=== PATIENT | female | born 1985 | race African-American/Black ===

== ENCOUNTER 2016-08-09 14:33 | Emergency (ER) | payer OTHER ==
[~2016-08-09 14:33] MED LIST: ALBU17IN INH; COLA100C PO; EXCETAB80 PO; FERR325T3 PO; IBUP80TA PO; PERC5TAB6 PO
[2016-08-09 15:56] LABS: BASO % 0.2 % (0.0-1.0); EOS # 0.2 K/mm3 (0.0-0.50); EOS % 2.7 % (0.0-3.0); LARGE UNSTAINED CELL # 0.1 K/mm3 (0.0-0.4); LARGE UNSTAINED CELL % 1.5 % (0.0-4.0); LYMPH # 1.5 K/mm3 (1.5-4.5); LYMPH % 21.3 % (24.0-44.0); MEAN CORPUSCULAR HEMOGLOBIN 28.8 pg (27.0-33.0); MEAN CORPUSCULAR HGB CONC 33.4 g/dl (32.0-36.5); MEAN CORPUSCULAR VOLUME 86.4 fl (80.0-96.0); MONO # 0.4 K/mm3 (0.0-0.8); MONO % 6.1 % (0.0-5.0); NEUTROPHILS # 4.9 K/mm3 (1.8-7.7); NEUTROPHILS % 68.2 % (36.0-66.0); PLATELET COUNT, AUTOMATED 289 k/mm3 (150-450); RED CELL DISTRIBUTION WIDTH 12.3 % (11.5-14.5); WHITE BLOOD COUNT 7.1 K/mm3 (4.0-10.0)
[2016-08-09 16:06] LABS: ALBUMIN 4.1 GM/DL (3.2-5.2); ALBUMIN/GLOBULIN RATIO 1.08 (1.00-1.93); ALKALINE PHOSPHATASE 76 U/L (45-117); ALT/SGPT 22 U/L (12-78); AMYLASE 42 U/L (25-115); ANION GAP 6 MEQ/L (8-16); AST/SGOT 11 U/L (15-37); BILIRUBIN,DIRECT < 0.1 MG/DL (0.0-0.2); BILIRUBIN,TOTAL 0.3 MG/DL (0.2-1.0); BLOOD UREA NITROGEN 7 MG/DL (7-18); CALCIUM LEVEL 9.2 MG/DL (8.5-10.1); CARBON DIOXIDE LEVEL 28 MEQ/L (21-32); CHLORIDE LEVEL 107 MEQ/L (98-107); CREATININE FOR GFR 0.76 MG/DL (0.55-1.02); GLOMERULAR FILTRATION RATE > 60.0 (>60); GLUCOSE, FASTING 105 MG/DL (70-105); POTASSIUM SERUM 3.5 MEQ/L (3.5-5.1); SODIUM LEVEL 141 MEQ/L (136-145); TOTAL PROTEIN 7.9 GM/DL (6.4-8.2)
[2016-08-09] MEDS ORDERED: ONDANSETRON 4 MG ORAL DISINTEGRATING TAB (S0181) As Ordered ONE (16:21)
[2016-08-09] MEDS ORDERED: ACETAMINOPHEN 325 MG TAB As Ordered ONE (16:22)
--- NOTE | 2016-08-09 17:00 | REP ---
Right upper quadrant sonography: History: Right upper quadrant pain. Comparison study: Comparison CT study March 12, 2016. Findings: Scanning through the right upper quadrant of the abdomen demonstrates a normal sized, thin-walled gallbladder without evidence of stone or polyp. Common bile duct is normal measuring 0.4 cm in greatest diameter. No focal liver lesion is seen. There is evidence of mild fatty infiltration diffusely in the liver. Liver size is normal. No pancreatic abnormality is observed. The pancreas is partially obscured by abdominal gas. No right renal abnormality is seen. There is no evidence of ascites. The right kidney measures 11.3 x 7.1 x 5.8 cm. Impression: Mild fatty infiltration in the liver suspected. Otherwise negative right upper quadrant sonography. Signed by Gage Huerta MD 08/09/2016 04:52 P
--- NOTE | 2016-08-09 17:18 | EDDOCDS ---
Physician Documentation [facility] Name: Cat More Age: 31 yrs Sex: Female : 1985 Arrival Date: 08/09/2016 Time: 14:33 Bed PR Private MD: MAYNOR Le Disposition: 08/09/16 17:09 Discharged to Home/Self Care. Impression: Right upper quadrant abdominal tenderness, Vomiting, Diarrhea, unspecified. - Condition is Stable. - Discharge Instructions: Abdominal Pain, Adult, Food Choices to Help Relieve Diarrhea, Adult, Nausea and Vomiting. - Prescriptions for Prilosec 20 mg Oral Capsule, Delayed Release(E.C.) - take 1 capsule by ORAL route once daily; 28 capsule. ZOFRAN ODT 4 mg - dissolve 1 tablet by ORAL route 4 times per day As needed do not chew, do not swallow whole; 10 tablet. - Medication Reconciliation, Local Pharmacy Hours form. - Follow up: MAYNOR Le; When: Call to arrange an appointment; Reason: Recheck today's complaints, Continuance of care. Follow up: Luis Alberto Law; When: Call to arrange an appointment; Reason: Recheck today's complaints, Continuance of care. - Problem is an acute exacerbation. - Symptoms are unchanged. Historical: - Allergies: Stadol (Hives); - Home Meds: 1. none - PMHx: Asthma; Migraine Headaches; PCOS; PID; - PSHx: Hysterectomy; - Social history: Smoking status: Patient uses tobacco products, current every day smoker. No barriers to communication noted, The patient speaks fluent Mauritian, Speaks appropriately for age. - Family history: Not pertinent. - : The pt / caregiver states he / she is not on anticoagulants. Home medication list is obtained from the patient. - Exposure Risk Screening:: None identified. 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 5 in. (165.10 cm); Pain 10/10; 17:11 BP 135 / 83; Pulse 81; Resp 18; Temp 98.7(TE); Pulse Ox 97% on R/A; Pain 7/10; mdr 14:35 Body Mass Index 40.27 (109.77 kg, 165.10 cm) cmb MDM: 14:55 UCG by Nursing ordered. dt4 15:04 NOTHING BY MOUTH+DIET ordered. EDMS 15:05 Amylase Ordered. EDMS 15:05 Basic Metabolic Profile Ordered. EDMS 15:05 CBC with Diff Ordered. EDMS 15:05 Lipase Ordered. EDMS 15:05 Liver Profile Ordered. EDMS 16:12 Liver Profile Reviewed. mo1 16:12 Amylase Reviewed. mo1 16:12 CBC with Diff Reviewed. mo1 16:13 Basic Metabolic Profile Reviewed. mo1 16:13 Lipase Reviewed. mo1 16:18 Ondansetron ODT Oral Disintegrating Tablet 4 mg PO once ordered. mo1 16:18 Acetaminophen Tablet 975 mg PO once ordered. mo1 16:19 US Gallbladder Ordered. EDMS 16:53 Financial registration complete. Point of Care Testing: Urine : 15:28 hCG Reading: Negative; Control Reading: Positive; mdr Ranges: Administered Medications: 16:25 Drug: Ondansetron ODT 4 mg [ondansetron 4 mg disintegrating tablet (1 tabs)] Route: PO; mcp 16:25 Drug: Acetaminophen 975 mg [acetaminophen 325 mg tablet (3 tabs)] Route: PO; [facility] Signatures: Dispatcher [employer] Franci Kennedy MD MD sd1 Latanya Sarkar RN RN mcp Barnhardt, Gloria, Jett Love PA PA mo1 Lamar Ovalle RN RN ead Tschudi, Diane, PA-C PA-C dt4 The chart was reviewed and I authenticate all verbal orders and agree with the evaluation and treatment provided.Corrections: (The following items were deleted from the chart) 16:55 15:03 Undress patient appropriately for examination ordered. sd1 mo1 [facility]
--- NOTE | 2016-08-09 17:18 | EDDOCDS ---
Nurse's Notes [facility] Name: Cat More Age: 31 yrs Sex: Female : 1985 Arrival Date: 08/09/2016 Time: 14:33 Bed PR Private MD: MAYNOR Le Diagnosis: Right upper quadrant abdominal tenderness;Vomiting;Diarrhea, unspecified Presentation: 08/09 14:36 Presenting complaint: Patient states: pt c/o abdominal pain, onset 2 weeks ago. States ead she was seen at [place] on Monday and diagnosed with stomach virus. Pt reports she continues to have n/v/d. Risk factors: the patient reports no vaginal bleeding. Adult Sepsis Screening: The patient does not have new or worsening altered mentation. Patient's respiratory rate is less than 22. Systolic blood pressure is greater than 100. Patient has a qSOFA score of 0- Negative Sepsis Screen. Suicide/Homicide risk assessment- the patient denies having any suicidal and/or homicidal ideations and does not present with any other emotional, behavioral or mental health complaints. Status: The patient is a dependent. Transition of care: patient was not received from another setting of care. 14:36 Acuity: TIERRA Level 3 ead 14:36 Method Of Arrival: Walkin/Carried/Asstd ead Triage Assessment: 14:38 General: Appears in no apparent distress, Behavior is appropriate for age, cooperative. ead Pain: Location: right upper quadrant and right lower quadrant Pain currently is 8 out of 10 on a pain scale. HIV screening NA for this visit Offered previously. Respiratory: Airway is patent Respiratory effort is even, unlabored. GI: Reports diarrhea, lower abdominal pain, upper abd pain, nausea, vomiting. : Denies burning with urination, pain vaginal bleeding. 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 none - PMHx: Asthma; Migraine Headaches; PCOS; PID; - PSHx: Hysterectomy; - Social history: Smoking status: Patient uses tobacco products, current every day smoker. No barriers to communication noted, The patient speaks fluent Ukrainian, Speaks appropriately for age. - Family history: Not pertinent. - : The pt / caregiver states he / she is not on anticoagulants. Home medication list is obtained from the patient. - Exposure Risk Screening:: None identified. Screenin:39 Screening information is obtained from the patient. Fall risk: No risks identified. ead Assistance ADL's: requires no assistance with activities of daily living. Abuse/DV Screen: The patient / caregiver reports he/she is: not in a situation that causes fear, pain or injury. Nutritional screening: No deficits noted. Advance Directives: Currently, there is a health care proxy, Sean More (). There is no active DNR order. There is no living will. home support is adequate. 14:40 Advance Directives: information regarding advance directives can be obtained from Sean More () [phone]. Assessment: 16:25 General: Appears in no apparent distress, Behavior is cooperative. Pain: Location: mcp abdomen Pain currently is 10 out of 10 on a pain scale. Neurological: No deficits noted. Respiratory: Airway is patent Respiratory effort is even, unlabored. GI: Abdomen is non- distended obese, Bowel sounds present X 4 quads. Abd is soft X 4 quads Abd is tender to palpation in right lower quadrant and left lower quadrant. Derm: Skin is normal. 17:16 General: Appears in no apparent distress, Behavior is cooperative. Pain: Location: mcp abdomen Pain currently is 6 out of 10 on a pain scale. Neurological: No deficits noted. Respiratory: Airway is patent Respiratory effort is even, unlabored. Derm: Skin is normal. Vital Signs: 14:35 BP 168 / 95; Pulse 116; Resp 20; Temp 97.8(O); Pulse Ox 100% ; Weight 109.77 kg; Height cmb 5 ft. 5 in. (165.10 cm); Pain 10/10; 17:11 BP 135 / 83; Pulse 81; Resp 18; Temp 98.7(TE); Pulse Ox 97% on R/A; Pain 7/10; mdr 14:35 Body Mass Index 40.27 (109.77 kg, 165.10 cm) cmb Vitals: 14:35 Log In Time: August 09, 2016 at 14:33. cmb ED Course: 14:34 Patient visited by Renata Orlando. cmb 14:34 Patient moved to Waiting cmb 14:35 MAYNOR Le is Private Physician. cmb 14:36 Patient moved to Pre RCE cmb 14:37 Triage Initiated ead 15:12 Patient moved to Triage 3 mcp 15:28 Patient visited by Jermaine Escobar PCA. mdr 15:30 Amylase Sent. kr3 15:30 Basic Metabolic Profile Sent. kr3 15:30 CBC with Diff Sent. kr3 15:30 Lipase Sent. kr3 15:30 Liver Profile Sent. kr3 16:09 Jett Garcia PA is PHCP. mo1 16:09 Franci Montero MD is Attending Physician. mo1 16:12 Patient visited by Jett Garcia PA. mo1 16:24 Patient moved to TR1 kr3 16:27 Patient visited by Latanya Sarkar RN. mcp 16:27 The patient / caregiver is instructed regarding the plan of care and ED course. Patient mcp has correct armband on for positive identification. Bed in low position. Call light in reach. 16:31 Patient moved to Ultrasound hgl 16:48 Patient moved to TR1 hgl 16:57 Patient moved to PR1 / 25 mdr 17:09 MAYNOR Le is Referral Physician. mo1 17:09 Luis Alberto Law is Referral Physician. mo1 17:14 Patient visited by Jermaine Escobar PCA. mdr 17:16 No IV's were initiated during this patient's visit. No procedures done that require mcp assistance. Administered Medications: 16:25 Drug: Ondansetron ODT 4 mg [ondansetron 4 mg disintegrating tablet (1 tabs)] Route: PO; [facility] 16:25 Drug: Acetaminophen 975 mg [acetaminophen 325 mg tablet (3 tabs)] Route: PO; [facility] Point of Care Testing: Urine : 15:28 hCG Reading: Negative; Control Reading: Positive; mdr Ranges: Order Results: Lab Order: Amylase; SPEC'M 08/09/16 15:29 Test: AMYLASE; Value: 42; Range: 25-115; Units: U/L; Status: F Lab Order: Basic Metabolic Profile; SPEC'M 08/09/16 15:29 Test: GLUCOSE, FASTING; Value: 105; Range: 70-105; Units: MG/DL; Status: F Test: BLOOD UREA NITROGEN; Value: 7; Range: 7-18; Units: MG/DL; Status: F Test: CREATININE FOR GFR; Value: 0.76; Range: 0.55-1.02; Units: MG/DL; Status: F Test: GLOMERULAR FILTRATION RATE; Value: > 60.0; Range: >60; Status: F Test: SODIUM LEVEL; Value: 141; Range: 136-145; Units: MEQ/L; Status: F Test: POTASSIUM SERUM; Value: 3.5; Range: 3.5-5.1; Units: MEQ/L; Status: F Test: CHLORIDE LEVEL; Value: 107; Range: 98-107; Units: MEQ/L; Status: F Test: CARBON DIOXIDE LEVEL; Value: 28; Range: 21-32; Units: MEQ/L; Status: F Test: ANION GAP; Value: 6; Range: 8-16; Abnormal: Below low normal; Units: MEQ/L; Status: F Test: CALCIUM LEVEL; Value: 9.2; Range: 8.5-10.1; Units: MG/DL; Status: F Test Note: ; Units are mL/min/1.73 m2 Chronic Kidney Disease Staging per NKF: Stage I & II GFR >=60 Normal to Mildly Decreased Stage III GFR 30-59 Moderately Decreased Stage IV GFR 15-29 Severely Decreased Stage V GFR <15 Very Little GFR Left ESRD GFR <15 on [facility] Lab Order: CBC with Diff; SPEC'M 08/09/16 15:29 Test: WHITE BLOOD COUNT; Value: 7.1; Range: 4.0-10.0; Units: K/mm3; Status: F Test: RED BLOOD COUNT; Value: 4.84; Range: 4.00-5.40; Units: M/mm3; Status: F Test: HEMOGLOBIN; Value: 13.9; Range: 12.0-16.0; Units: g/dl; Status: F Test: HEMATOCRIT; Value: 41.8; Range: 36.0-47.0; Units: %; Status: F Test: MEAN CORPUSCULAR VOLUME; Value: 86.4; Range: 80.0-96.0; Units: fl; Status: F Test: MEAN CORPUSCULAR HEMOGLOBIN; Value: 28.8; Range: 27.0-33.0; Units: pg; Status: F Test: MEAN CORPUSCULAR HGB CONC; Value: 33.4; Range: 32.0-36.5; Units: g/dl; Status: F Test: RED CELL DISTRIBUTION WIDTH; Value: 12.3; Range: 11.5-14.5; Units: %; Status: F Test: PLATELET COUNT, AUTOMATED; Value: 289; Range: 150-450; Units: k/mm3; Status: F Test: NEUTROPHILS %; Value: 68.2; Range: 36.0-66.0; Abnormal: Above high normal; Units: %; Status: F Test: LYMPH %; Value: 21.3; Range: 24.0-44.0; Abnormal: Below low normal; Units: %; Status: F Test: MONO %; Value: 6.1; Range: 0.0-5.0; Abnormal: Above high normal; Units: %; Status: F Test: EOS %; Value: 2.7; Range: 0.0-3.0; Units: %; Status: F Test: BASO %; Value: 0.2; Range: 0.0-1.0; Units: %; Status: F Test: LARGE UNSTAINED CELL %; Value: 1.5; Range: 0.0-4.0; Units: %; Status: F Test: NEUTROPHILS #; Value: 4.9; Range: 1.8-7.7; Units: K/mm3; Status: F Test: LYMPH #; Value: 1.5; Range: 1.5-4.5; Units: K/mm3; Status: F Test: MONO #; Value: 0.4; Range: 0.0-0.8; Units: K/mm3; Status: F Test: EOS #; Value: 0.2; Range: 0.0-0.50; Units: K/mm3; Status: F Test: BASO #; Value: 0.0; Range: 0.0-0.2; Units: K/mm3; Status: F Test: LARGE UNSTAINED CELL #; Value: 0.1; Range: 0.0-0.4; Units: K/mm3; Status: F Lab Order: Lipase; SPEC'M 08/09/16 15:29 Test: LIPASE; Value: 105; Range: 73-393; Units: U/L; Status: F Lab Order: Liver Profile; SPEC'M 08/09/16 15:29 Test: AST/SGOT; Value: 11; Range: 15-37; Abnormal: Below low normal; Units: U/L; Status: F Test: ALT/SGPT; Value: 22; Range: 12-78; Units: U/L; Status: F Test: ALKALINE PHOSPHATASE; Value: 76; Range: 45-117; Units: U/L; Status: F Test: BILIRUBIN,TOTAL; Value: 0.3; Range: 0.2-1.0; Units: MG/DL; Status: F Test: BILIRUBIN,DIRECT; Value: < 0.1; Range: 0.0-0.2; Units: MG/DL; Status: F Test: TOTAL PROTEIN; Value: 7.9; Range: 6.4-8.2; Units: GM/DL; Status: F Test: ALBUMIN; Value: 4.1; Range: 3.2-5.2; Units: GM/DL; Status: F Test: ALBUMIN/GLOBULIN RATIO; Value: 1.08; Range: 1.00-1.93; Status: F Outcome: 17:09 Discharge ordered by Provider. mo1 17:16 Discharge Assessment: patient administered narcotics - no. The following High Risk [facility] Discharge criteria are identified: None. Discharged to home ambulatory. Condition: stable. Discharge instructions given to patient, Instructed on discharge instructions, follow up and referral plans. medication usage, Demonstrated understanding of instructions, medications, Pt was receptive of discharge instructions/ teaching. Prescriptions given X 2. Ultrasound Study completed. Property sent home with patient. 17:17 Patient left the ED. [facility] Signatures: Latanya Sarkar RN RN mcp Robie, KathleenRN RN [id number] Abelardo Harper [place] cmb O'Hagan, Michael, PA PA mo1 Lamar Ovalle,Jermaine Alejo RN, ANASTACIA CHIEF SERVICE DISPATCHER mdr MTDD
--- NOTE | 2016-08-11 18:18 | EDDOCDS ---
Physician Documentation [facility] Name: Cat More Age: 31 yrs Sex: Female : 1985 Arrival Date: 08/09/2016 Time: 14:33 Bed PR Private MD: MAYNOR Le Disposition: 08/09/16 17:09 Discharged to Home/Self Care. Impression: Right upper quadrant abdominal tenderness, Vomiting, Diarrhea, unspecified. - Condition is Stable. - Discharge Instructions: Abdominal Pain, Adult, Food Choices to Help Relieve Diarrhea, Adult, Nausea and Vomiting. - Prescriptions for Prilosec 20 mg Oral Capsule, Delayed Release(E.C.) - take 1 capsule by ORAL route once daily; 28 capsule. ZOFRAN ODT 4 mg - dissolve 1 tablet by ORAL route 4 times per day As needed do not chew, do not swallow whole; 10 tablet. - Medication Reconciliation, Local Pharmacy Hours form. - Follow up: MAYNOR Le; When: Call to arrange an appointment; Reason: Recheck today's complaints, Continuance of care. Follow up: Luis Alberto Law; When: Call to arrange an appointment; Reason: Recheck today's complaints, Continuance of care. - Problem is an acute exacerbation. - Symptoms are unchanged. Historical: - Allergies: Stadol (Hives); - Home Meds: 1. none - PMHx: Asthma; Migraine Headaches; PCOS; PID; - PSHx: Hysterectomy; - Social history: Smoking status: Patient uses tobacco products, current every day smoker. No barriers to communication noted, The patient speaks fluent Mongolian, Speaks appropriately for age. - Family history: Not pertinent. - : The pt / caregiver states he / she is not on anticoagulants. Home medication list is obtained from the patient. - Exposure Risk Screening:: None identified. GALLEY HAND: 08/09 14:38 LMP N/A - Hysterectomy ead Vital Signs: 14:35 BP 168 / 95; Pulse 116; Resp 20; Temp 97.8(O); Pulse Ox 100% ; Weight 109.77 kg / 242 cmb lbs; Height 5 ft. 5 in. (165.10 cm); Pain 10/10; 17:11 BP 135 / 83; Pulse 81; Resp 18; Temp 98.7(TE); Pulse Ox 97% on R/A; Pain 7/10; mdr 14:35 Body Mass Index 40.27 (109.77 kg, 165.10 cm) cmb MDM: 14:55 UCG by Nursing ordered. dt4 15:04 NOTHING BY MOUTH+DIET ordered. EDMS 15:05 Amylase Ordered. EDMS 15:05 Basic Metabolic Profile Ordered. EDMS 15:05 CBC with Diff Ordered. EDMS 15:05 Lipase Ordered. EDMS 15:05 Liver Profile Ordered. EDMS 16:12 Liver Profile Reviewed. mo1 16:12 Amylase Reviewed. mo1 16:12 CBC with Diff Reviewed. mo1 16:13 Basic Metabolic Profile Reviewed. mo1 16:13 Lipase Reviewed. mo1 16:18 Ondansetron ODT Oral Disintegrating Tablet 4 mg PO once ordered. mo1 16:18 Acetaminophen Tablet 975 mg PO once ordered. mo1 16:19 US Gallbladder Ordered. EDMS 16:53 Financial registration complete. 18: [facility] Payment Agreement was scanned into [employer] and attached to record. 08/10 03:20 T-Sheet-- Draft Copy was scanned into [employer] and attached to record. hs2 Point of Care Testing: Urine : 08/09 15:28 hCG Reading: Negative; Control Reading: Positive; mdr Ranges: Administered Medications: 16:25 Drug: Ondansetron ODT 4 mg [ondansetron 4 mg disintegrating tablet (1 tabs)] Route: PO; mcp 16:25 Drug: Acetaminophen 975 mg [acetaminophen 325 mg tablet (3 tabs)] Route: PO; [facility] Signatures: [facility]patcher [facility] Franci Montero MD MD sd1 Latanya Sarkar RN RN Abbi Fortune, Reg Reg gb Jett Garcia PA PA mo1 Lamar Ovalle,RN RN Rosalinda Chávez PA-C PA-C dt4 Mag Delong, Reg Reg hs2 The chart was reviewed and I authenticate all verbal orders and agree with the evaluation and treatment provided.Corrections: (The following items were deleted from the chart) 16:55 15:03 Undress patient appropriately for examination ordered. sd1 mo1 Attachments: 18:09 [facility] Payment Agreement 08/10 03:20 T-Sheet-- Draft Copy hs2 Chart Complete MTDD
--- NOTE | 2016-08-11 18:18 | EDDOCDS ---
Physician Documentation [facility] Name: Cat More Age: 31 yrs Sex: Female : 1985 Arrival Date: 08/09/2016 Time: 14:33 Bed PR Private MD: MAYNOR Le Disposition: 08/09/16 17:09 Discharged to Home/Self Care. Impression: Right upper quadrant abdominal tenderness, Vomiting, Diarrhea, unspecified. - Condition is Stable. - Discharge Instructions: Abdominal Pain, Adult, Food Choices to Help Relieve Diarrhea, Adult, Nausea and Vomiting. - Prescriptions for Prilosec 20 mg Oral Capsule, Delayed Release(E.C.) - take 1 capsule by ORAL route once daily; 28 capsule. ZOFRAN ODT 4 mg - dissolve 1 tablet by ORAL route 4 times per day As needed do not chew, do not swallow whole; 10 tablet. - Medication Reconciliation, Local Pharmacy Hours form. - Follow up: MAYNOR Le; When: Call to arrange an appointment; Reason: Recheck today's complaints, Continuance of care. Follow up: Luis Alberto Law; When: Call to arrange an appointment; Reason: Recheck today's complaints, Continuance of care. - Problem is an acute exacerbation. - Symptoms are unchanged. Historical: - Allergies: Stadol (Hives); - Home Meds: 1. none - PMHx: Asthma; Migraine Headaches; PCOS; PID; - PSHx: Hysterectomy; - Social history: Smoking status: Patient uses tobacco products, current every day smoker. No barriers to communication noted, The patient speaks fluent Armenian, Speaks appropriately for age. - Family history: Not pertinent. - : The pt / caregiver states he / she is not on anticoagulants. Home medication list is obtained from the patient. - Exposure Risk Screening:: None identified. 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 5 in. (165.10 cm); Pain 10/10; 17:11 BP 135 / 83; Pulse 81; Resp 18; Temp 98.7(TE); Pulse Ox 97% on R/A; Pain 7/10; mdr 14:35 Body Mass Index 40.27 (109.77 kg, 165.10 cm) cmb MDM: 14:55 UCG by Nursing ordered. dt4 15:04 NOTHING BY MOUTH+DIET ordered. EDMS 15:05 Amylase Ordered. EDMS 15:05 Basic Metabolic Profile Ordered. EDMS 15:05 CBC with Diff Ordered. EDMS 15:05 Lipase Ordered. EDMS 15:05 Liver Profile Ordered. EDMS 16:12 Liver Profile Reviewed. mo1 16:12 Amylase Reviewed. mo1 16:12 CBC with Diff Reviewed. mo1 16:13 Basic Metabolic Profile Reviewed. mo1 16:13 Lipase Reviewed. mo1 16:18 Ondansetron ODT Oral Disintegrating Tablet 4 mg PO once ordered. mo1 16:18 Acetaminophen Tablet 975 mg PO once ordered. mo1 16:19 US Gallbladder Ordered. EDMS 16:53 Financial registration complete. 18: [facility] Payment Agreement was scanned into [employer] and attached to record. 08/10 03:20 T-Sheet-- Draft Copy was scanned into [employer] and attached to record. hs2 Point of Care Testing: Urine : 08/09 15:28 hCG Reading: Negative; Control Reading: Positive; mdr Ranges: Administered Medications: 16:25 Drug: Ondansetron ODT 4 mg [ondansetron 4 mg disintegrating tablet (1 tabs)] Route: PO; mcp 16:25 Drug: Acetaminophen 975 mg [acetaminophen 325 mg tablet (3 tabs)] Route: PO; [facility] Signatures: [facility]patcher [facility] Franci Montero MD MD sd1 Latanya Sarkar RN RN Abbi Fortune, Reg Reg gb Jett Garcia PA PA mo1 Lamar Ovalle,RN RN Rosalinda Chávez PA-C PA-C dt4 Mag Delong, Reg Reg hs2 The chart was reviewed and I authenticate all verbal orders and agree with the evaluation and treatment provided.Corrections: (The following items were deleted from the chart) 16:55 15:03 Undress patient appropriately for examination ordered. sd1 mo1 Attachments: 18:09 [facility] Payment Agreement 08/10 03:20 T-Sheet-- Draft Copy hs2 Chart Complete MTDD
--- NOTE | 2016-08-11 18:18 | EDDOCDS ---
Nurse's Notes [facility] Name: Cat More Age: 31 yrs Sex: Female : 1985 Arrival Date: 08/09/2016 Time: 14:33 Bed PR Private MD: MAYNOR Le Diagnosis: Right upper quadrant abdominal tenderness;Vomiting;Diarrhea, unspecified Presentation: 08/09 14:36 Presenting complaint: Patient states: pt c/o abdominal pain, onset 2 weeks ago. States ead she was seen at [facility] on Monday and diagnosed with stomach virus. Pt reports she continues to have n/v/d. Risk factors: the patient reports no vaginal bleeding. Adult Sepsis Screening: The patient does not have new or worsening altered mentation. Patient's respiratory rate is less than 22. Systolic blood pressure is greater than 100. Patient has a qSOFA score of 0- Negative Sepsis Screen. Suicide/Homicide risk assessment- the patient denies having any suicidal and/or homicidal ideations and does not present with any other emotional, behavioral or mental health complaints. Status: The patient is a dependent. Transition of care: patient was not received from another setting of care. 14:36 Acuity: TIERRA Level 3 ead 14:36 Method Of Arrival: Walkin/Carried/Asstd ead Triage Assessment: 14:38 General: Appears in no apparent distress, Behavior is appropriate for age, cooperative. ead Pain: Location: right upper quadrant and right lower quadrant Pain currently is 8 out of 10 on a pain scale. HIV screening NA for this visit Offered previously. Respiratory: Airway is patent Respiratory effort is even, unlabored. GI: Reports diarrhea, lower abdominal pain, upper abd pain, nausea, vomiting. : Denies burning with urination, pain vaginal bleeding. PAYABLE MANAGER: 14:38 LMP N/A - Hysterectomy ead Historical: - Allergies: Stadol (Hives); - Home Meds: 1. none - PMHx: Asthma; Migraine Headaches; PCOS; PID; - PSHx: Hysterectomy; - Social history: Smoking status: Patient uses tobacco products, current every day smoker. No barriers to communication noted, The patient speaks fluent Chinese, Speaks appropriately for age. - Family history: Not pertinent. - : The pt / caregiver states he / she is not on anticoagulants. Home medication list is obtained from the patient. - Exposure Risk Screening:: None identified. Screenin:39 Screening information is obtained from the patient. Fall risk: No risks identified. ead Assistance ADL's: requires no assistance with activities of daily living. Abuse/DV Screen: The patient / caregiver reports he/she is: not in a situation that causes fear, pain or injury. Nutritional screening: No deficits noted. Advance Directives: Currently, there is a health care proxy, Sean More (). There is no active DNR order. There is no living will. home support is adequate. 14:40 Advance Directives: information regarding advance directives can be obtained from Sean More () [phone]. Assessment: 16:25 General: Appears in no apparent distress, Behavior is cooperative. Pain: Location: mcp abdomen Pain currently is 10 out of 10 on a pain scale. Neurological: No deficits noted. Respiratory: Airway is patent Respiratory effort is even, unlabored. GI: Abdomen is non- distended obese, Bowel sounds present X 4 quads. Abd is soft X 4 quads Abd is tender to palpation in right lower quadrant and left lower quadrant. Derm: Skin is normal. 17:16 General: Appears in no apparent distress, Behavior is cooperative. Pain: Location: mcp abdomen Pain currently is 6 out of 10 on a pain scale. Neurological: No deficits noted. Respiratory: Airway is patent Respiratory effort is even, unlabored. Derm: Skin is normal. Vital Signs: 14:35 BP 168 / 95; Pulse 116; Resp 20; Temp 97.8(O); Pulse Ox 100% ; Weight 109.77 kg; Height cmb 5 ft. 5 in. (165.10 cm); Pain 10/10; 17:11 BP 135 / 83; Pulse 81; Resp 18; Temp 98.7(TE); Pulse Ox 97% on R/A; Pain 7/10; mdr 14:35 Body Mass Index 40.27 (109.77 kg, 165.10 cm) cmb Vitals: 14:35 Log In Time: August 09, 2016 at 14:33. cmb ED Course: 14:34 Patient visited by Renata Orlando. cmb 14:34 Patient moved to Waiting cmb 14:35 MAYNOR Le is Private Physician. cmb 14:36 Patient moved to Pre RCE cmb 14:37 Triage Initiated ead 15:12 Patient moved to Triage 3 mcp 15:28 Patient visited by Jermaine Escobar PCA. mdr 15:30 Amylase Sent. kr3 15:30 Basic Metabolic Profile Sent. kr3 15:30 CBC with Diff Sent. kr3 15:30 Lipase Sent. kr3 15:30 Liver Profile Sent. kr3 16:09 Jett Garcia PA is PHCP. mo1 16:09 Franci Montero MD is Attending Physician. mo1 16:12 Patient visited by Jett Garcia PA. mo1 16:24 Patient moved to TR1 kr3 16:27 Patient visited by Latanya Sarkar RN. mcp 16:27 The patient / caregiver is instructed regarding the plan of care and ED course. Patient mcp has correct armband on for positive identification. Bed in low position. Call light in reach. 16:31 Patient moved to Ultrasound hgl 16:48 Patient moved to TR1 hgl 16:57 Patient moved to PR1 / 25 mdr 17:09 MAYNOR Le is Referral Physician. mo1 17:09 Luis Alberto Law is Referral Physician. mo1 17:14 Patient visited by Jermaine Escobar PCA. mdr 17:16 No IV's were initiated during this patient's visit. No procedures done that require mcp assistance. 17:37 US Gallbladder Returned. EDMS 18:09 [facility] Payment Agreement was scanned into [employer] and attached to record. gb 08/10 03:20 T-Sheet-- Draft Copy was scanned into [employer] and attached to record. hs2 Administered Medications: 08/09 16:25 Drug: Ondansetron ODT 4 mg [ondansetron 4 mg disintegrating tablet (1 tabs)] Route: PO; [facility] 16:25 Drug: Acetaminophen 975 mg [acetaminophen 325 mg tablet (3 tabs)] Route: PO; [facility] Point of Care Testing: Urine : 15:28 hCG Reading: Negative; Control Reading: Positive; mdr Ranges: Order Results: Lab Order: Amylase; SPEC'M 08/09/16 15:29 Test: AMYLASE; Value: 42; Range: 25-115; Units: U/L; Status: F Lab Order: Basic Metabolic Profile; SPEC'M 08/09/16 15:29 Test: GLUCOSE, FASTING; Value: 105; Range: 70-105; Units: MG/DL; Status: F Test: BLOOD UREA NITROGEN; Value: 7; Range: 7-18; Units: MG/DL; Status: F Test: CREATININE FOR GFR; Value: 0.76; Range: 0.55-1.02; Units: MG/DL; Status: F Test: GLOMERULAR FILTRATION RATE; Value: > 60.0; Range: >60; Status: F Test: SODIUM LEVEL; Value: 141; Range: 136-145; Units: MEQ/L; Status: F Test: POTASSIUM SERUM; Value: 3.5; Range: 3.5-5.1; Units: MEQ/L; Status: F Test: CHLORIDE LEVEL; Value: 107; Range: 98-107; Units: MEQ/L; Status: F Test: CARBON DIOXIDE LEVEL; Value: 28; Range: 21-32; Units: MEQ/L; Status: F Test: ANION GAP; Value: 6; Range: 8-16; Abnormal: Below low normal; Units: MEQ/L; Status: F Test: CALCIUM LEVEL; Value: 9.2; Range: 8.5-10.1; Units: MG/DL; Status: F Test Note: ; Units are mL/min/1.73 m2 Chronic Kidney Disease Staging per NKF: Stage I & II GFR >=60 Normal to Mildly Decreased Stage III GFR 30-59 Moderately Decreased Stage IV GFR 15-29 Severely Decreased Stage V GFR <15 Very Little GFR Left ESRD GFR <15 on [facility] Lab Order: CBC with Diff; SPEC'M 08/09/16 15:29 Test: WHITE BLOOD COUNT; Value: 7.1; Range: 4.0-10.0; Units: K/mm3; Status: F Test: RED BLOOD COUNT; Value: 4.84; Range: 4.00-5.40; Units: M/mm3; Status: F Test: HEMOGLOBIN; Value: 13.9; Range: 12.0-16.0; Units: g/dl; Status: F Test: HEMATOCRIT; Value: 41.8; Range: 36.0-47.0; Units: %; Status: F Test: MEAN CORPUSCULAR VOLUME; Value: 86.4; Range: 80.0-96.0; Units: fl; Status: F Test: MEAN CORPUSCULAR HEMOGLOBIN; Value: 28.8; Range: 27.0-33.0; Units: pg; Status: F Test: MEAN CORPUSCULAR HGB CONC; Value: 33.4; Range: 32.0-36.5; Units: g/dl; Status: F Test: RED CELL DISTRIBUTION WIDTH; Value: 12.3; Range: 11.5-14.5; Units: %; Status: F Test: PLATELET COUNT, AUTOMATED; Value: 289; Range: 150-450; Units: k/mm3; Status: F Test: NEUTROPHILS %; Value: 68.2; Range: 36.0-66.0; Abnormal: Above high normal; Units: %; Status: F Test: LYMPH %; Value: 21.3; Range: 24.0-44.0; Abnormal: Below low normal; Units: %; Status: F Test: MONO %; Value: 6.1; Range: 0.0-5.0; Abnormal: Above high normal; Units: %; Status: F Test: EOS %; Value: 2.7; Range: 0.0-3.0; Units: %; Status: F Test: BASO %; Value: 0.2; Range: 0.0-1.0; Units: %; Status: F Test: LARGE UNSTAINED CELL %; Value: 1.5; Range: 0.0-4.0; Units: %; Status: F Test: NEUTROPHILS #; Value: 4.9; Range: 1.8-7.7; Units: K/mm3; Status: F Test: LYMPH #; Value: 1.5; Range: 1.5-4.5; Units: K/mm3; Status: F Test: MONO #; Value: 0.4; Range: 0.0-0.8; Units: K/mm3; Status: F Test: EOS #; Value: 0.2; Range: 0.0-0.50; Units: K/mm3; Status: F Test: BASO #; Value: 0.0; Range: 0.0-0.2; Units: K/mm3; Status: F Test: LARGE UNSTAINED CELL #; Value: 0.1; Range: 0.0-0.4; Units: K/mm3; Status: F Lab Order: Lipase; SPEC'M 08/09/16 15:29 Test: LIPASE; Value: 105; Range: 73-393; Units: U/L; Status: F Lab Order: Liver Profile; SPEC'M 08/09/16 15:29 Test: AST/SGOT; Value: 11; Range: 15-37; Abnormal: Below low normal; Units: U/L; Status: F Test: ALT/SGPT; Value: 22; Range: 12-78; Units: U/L; Status: F Test: ALKALINE PHOSPHATASE; Value: 76; Range: 45-117; Units: U/L; Status: F Test: BILIRUBIN,TOTAL; Value: 0.3; Range: 0.2-1.0; Units: MG/DL; Status: F Test: BILIRUBIN,DIRECT; Value: < 0.1; Range: 0.0-0.2; Units: MG/DL; Status: F Test: TOTAL PROTEIN; Value: 7.9; Range: 6.4-8.2; Units: GM/DL; Status: F Test: ALBUMIN; Value: 4.1; Range: 3.2-5.2; Units: GM/DL; Status: F Test: ALBUMIN/GLOBULIN RATIO; Value: 1.08; Range: 1.00-1.93; Status: F Radiology Order: US Gallbladder Test: US Gallbladder REASON FOR EXAMINATION: Biliary Colic; Right upper quadrant sonography:; ; History: Right upper quadrant pain.; ; Comparison study: Comparison CT study March 12, 2016.; ; Findings: Scanning through the right upper quadrant of the abdomen demonstrates a; normal sized, thin-walled gallbladder without evidence of stone or polyp. Common; bile duct is normal measuring 0.4 cm in greatest diameter. No focal liver lesion; is seen. There is evidence of mild fatty infiltration diffusely in the liver.; Liver size is normal. No pancreatic abnormality is observed. The pancreas is; partially obscured by abdominal gas. No right renal abnormality is seen. There; is no evidence of ascites. The right kidney measures 11.3 x 7.1 x 5.8 cm.; ; Impression:; ; Mild fatty infiltration in the liver suspected. Otherwise negative right upper; quadrant sonography.; ; ; Signed by; Gage Huerta MD 08/09/2016 04:52 P; Outcome: 17:09 Discharge ordered by Provider. mo1 17:16 Discharge Assessment: patient administered narcotics - no. The following High Risk [facility] Discharge criteria are identified: None. Discharged to home ambulatory. Condition: stable. Discharge instructions given to patient, Instructed on discharge instructions, follow up and referral plans. medication usage, Demonstrated understanding of instructions, medications, Pt was receptive of discharge instructions/ teaching. Prescriptions given X 2. Ultrasound Study completed. Property sent home with patient. 17:17 Patient left the ED. [facility] Signatures: Dispatcher [employer] EDLatanya Cullen RN RN Abbi Fortune, Reg Reg gb Justine Plata RN RN kr3 Meredith, Renata Cooper Michael, PA PA mo1 Lamar Ovalle,RN RN Jermaine Hall, ANASTACIA FOAM TANK LAMINATOR Mag Norwood, Reg Reg hs2 Chart Complete [place]
== END 2016-08-09 17:17 | disposition home or self-care (01) ==
LOC: M ED 14:33
DX: R10.11 Right upper quadrant pain (principal); R11.2 Nausea with vomiting, unspecified; R19.7 Diarrhea, unspecified; J45.909 Unspecified asthma, uncomplicated; G43.909 Migraine, unspecified, not intractable, without status migrainosus; E28.2 Polycystic ovarian syndrome; F17.210 Nicotine dependence, cigarettes, uncomplicated; Z88.8 Allergy status to other drugs, medicaments and biological substances

== ENCOUNTER → 2016-10-26 | Outpatient (CLI) | payer OTHER ==
[~2016-10-26] MED LIST changes: -COLA100C PO; +COLA100C3 PO
--- NOTE | 2016-10-26 11:45 | REP ---
HIDA SCAN WITH GALLBLADDER EJECTION FRACTION: Following the intravenous administration of 6.4 mCi of technetium 99m mebrofenin, multiple images of the right upper quadrant are performed every 5 minutes for a period of 1 hour. The gallbladder is visualized at 15 minutes post injection. There is biliary to bowel transit at 35 minutes post injection with no scintigraphic evidence of cholecystitis. At the 1 hour larry, 8 ounces of Ensure Enlive is ingested and further imaging performed for 1 hour. Gallbladder activity is measured and gallbladder ejection fraction is calculated to be 41%. This is within normal range, normal being greater than 35%. IMPRESSION: No scintigraphic evidence of cholecystitis. Normal gallbladder ejection fraction. Signed by Scott Alonzo MD 10/26/2016 02:26 P
== END ==
LOC: M RAD 07:27
PROVIDERS: ATTEND Family Medicine
DX: R10.11 Right upper quadrant pain (principal)

== ENCOUNTER → 2017-08-17 | Outpatient (REF) | payer OTHER ==
[2017-08-17 16:00] LABS: INFLUENZA A AMPLIFICATION NEGATIVE (NEGATIVE); INFLUENZA B AMPLIFICATION NEGATIVE (NEGATIVE); RSV AMPLIFICATION NEGATIVE (NEGATIVE)
== END ==
LOC: M LAB REF 15:04
DX: J11.1 Influenza due to unidentified influenza virus with other respiratory manifestations (principal)

== ENCOUNTER 2017-10-05 17:22 | Emergency (ER) | payer OTHER ==
[2017-10-05] MEDS: NS 1,000 ML IV ×2 (18:42→20:23)
[2017-10-05] MEDS: ONDANSETRON 4MG/2ML VIAL (J2405) IV (18:42)
[2017-10-05 18:48] LABS: BASO % 0.2 % (0.0-1.0); EOS # 0.1 10^3/uL (0.0-0.50); EOS % 0.6 % (0.0-3.0); HEMOGLOBIN 14.4 g/dl (12.0-16.0); IMMATURE GRANULOCYTE % 0.3 % (0-3.0); LYMPH # 0.4 10^3/uL (1.5-4.5); LYMPH % 3.9 % (24.0-44.0); MEAN CORPUSCULAR HEMOGLOBIN 29.8 pg (27.0-33.0); MEAN CORPUSCULAR HGB CONC 33.5 g/dl (32.0-36.5); MONO # 0.5 10^3/uL (0.0-0.8); MONO % 5.1 % (0.0-5.0); NEUTROPHILS # 8.5 10^3/uL (1.8-7.7); NEUTROPHILS % 89.9 % (36.0-66.0); PLATELET COUNT, AUTOMATED 250 10^3/uL (150-450); RED BLOOD COUNT 4.83 10^6/uL (4.00-5.40); RED CELL DISTRIBUTION WIDTH 12.3 % (11.5-14.5); WHITE BLOOD COUNT 9.5 10^3/uL (4.0-10.0)
[2017-10-05 19:26] LABS: ALBUMIN 4.1 GM/DL (3.2-5.2); ALBUMIN/GLOBULIN RATIO 1.11 (1.00-1.93); ALKALINE PHOSPHATASE 73 U/L (45-117); ALT/SGPT 20 U/L (12-78); ANION GAP 6 MEQ/L (8-16); AST/SGOT 10 U/L (7-37); BILIRUBIN,DIRECT < 0.1 MG/DL (0.0-0.2); BILIRUBIN,TOTAL 0.4 MG/DL (0.2-1.0); BLOOD UREA NITROGEN 14 MG/DL (7-18); CALCIUM LEVEL 8.5 MG/DL (8.5-10.1); CARBON DIOXIDE LEVEL 29 MEQ/L (21-32); CHLORIDE LEVEL 106 MEQ/L (98-107); CREATININE FOR GFR 0.72 MG/DL (0.55-1.30); GLOMERULAR FILTRATION RATE > 60.0 (>60); GLUCOSE, FASTING 91 MG/DL (70-100); LIPASE 78 U/L (73-393); POTASSIUM SERUM 3.6 MEQ/L (3.5-5.1); SODIUM LEVEL 141 MEQ/L (136-145); TOTAL PROTEIN 7.8 GM/DL (6.4-8.2)
[2017-10-05] MEDS: KETOROLAC 30 MG/ML VIAL (J1885) IV (19:43)
[2017-10-05] MEDS: METOCLOPRAMIDE INJ 10MG/2ML VIAL (J2765) IV (20:20)
[2017-10-05] MEDS: ONDANSETRON 4 MG ORAL DISINTEGRATING TAB (S0181) PO (20:45)
[2017-10-05] MEDS ORDERED: ACETAMINOPHEN TAB 650MG DOSE (2X325MG) PO (20:45)
== END 2017-10-05 21:15 | disposition home or self-care (01) ==
LOC: M ED 17:22
DX: A08.4 Viral intestinal infection, unspecified (principal); K21.9 Gastro-esophageal reflux disease without esophagitis; J45.909 Unspecified asthma, uncomplicated; E28.2 Polycystic ovarian syndrome; F17.200 Nicotine dependence, unspecified, uncomplicated; Z20.828 Contact with and (suspected) exposure to other viral communicable diseases; Z88.8 Allergy status to other drugs, medicaments and biological substances
CPT/HCPCS: J2405

== ENCOUNTER 2018-07-24 05:41 | Emergency (ER) | payer OTHER ==
[~2018-07-24] VITALS: Ht 165.1 cm; Wt 109.1 kg
[2018-07-24 05:41] VITALS: BP 140/85
[~2018-07-24 05:41] MED LIST changes: -COLA100C3 PO; +COLA100C5 PO; +PERC5TAB12 PO; -PERC5TAB6 PO; +ZOFR4TAB14 PO
[2018-07-24] MEDS ORDERED: PSEU30TA PO (05:46)
[2018-07-24] MEDS ORDERED: MUCI600T37 PO (06:20)
[2018-07-24] MEDS ORDERED: AFRI0.0511 (06:20)
[2018-07-24] MEDS ORDERED: BENZ200C70 PO (06:20)
== END 2018-07-24 06:50 | disposition home or self-care (01) ==
LOC: M ED 05:41
DX: J06.9 Acute upper respiratory infection, unspecified (principal); J45.909 Unspecified asthma, uncomplicated; F17.200 Nicotine dependence, unspecified, uncomplicated; Z88.8 Allergy status to other drugs, medicaments and biological substances; Z79.899 Other long term (current) drug therapy